=== PATIENT | female | born 1980 | race American Indian/Alaskan Native ===

== ENCOUNTER 2017-09-13 12:39 | Outpatient (CLI) | payer OTHER ==
[2017-09-13] MEDS ORDERED: LACTATED RINGERS 500 ML IV ONE (13:41)
[2017-09-13 14:05] VITALS: BP 126/76
[2017-09-13] MEDS ORDERED: NORMOSOL-R PH 7.4 1,000 ML IV ONE (14:59)
[2017-09-13] MEDS ORDERED: NORMOSOL-R PH 7.4 1,000 ML IV SCH (15:00)
--- NOTE | 2017-09-13 15:08 | Ultrasound Report ---
OB sonogram: History: well being. Findings: Gestation: Single Position: Cephalic Amniotic Fluid: AUSTIN = 35.5. Normal being 7-24 cm cm Placenta: Fundal Placental Grade: 0 Heart Rate: 155 BPM Cervical length: 3.1 cm (Normal > 3 cm) NEUROANATOMY VISUALIZED: Unable to evaluate anatomy due to position. ANATOMY VISUALIZED: Normal Stomach Kidneys Bladder Diaphragm 4 Chamber Heart Heart 3 Vessel Cord Abd. Cord Insert SPINE VISUALIZED: Normal Longitudinal Transverse The measurements below are all approximate: BPD: 10.04 cm = 41 w 2 d HC: 36.45 cm AC: 39.83 cm FL: 8.1 cm = 41 w 3 d HC/AC Ratio: 0.92 Cephalic Index: 82.5 Estimated Weight: 4896 grams LMP: 12/31/16 Clinical age = 36 w 4 d EDC: 10/07/17 US Gest. Age = 41 w 3 d EDC: 09/03/17 BIOPHYSICAL PROFILE: 2 - breathing movements 2 - movements 2 - posture and tone 2 - Qualitative amniotic fluid volume - TOTAL SCORE OF POSSIBLE 8 Heart Rate (bpm) 144
== END 2017-09-13 17:02 | disposition home or self-care (01) ==
LOC: TRG 12:39
PROVIDERS: ATTEND Obstetrics & Gynecology
DX: O47.03 False labor before 37 completed weeks of gestation, third trimester (principal); Z3A.36 36 weeks gestation of pregnancy
CPT/HCPCS: 59025; 76805; 76819; 96360

== ENCOUNTER 2017-09-26 05:42 | Inpatient (IN) | payer SELFPAY ==
[2017-09-26] MEDS: NORMOSOL-R PH 7.4 1,000 ML IV SCH ×3 (06:10→07:38)
[2017-09-26] MEDS ORDERED: REGLAN IV ONE (06:30)
[2017-09-26] MEDS ORDERED: BICITRA PO ONE (06:31)
[2017-09-26] MEDS ORDERED: PEPCID IV ONE (06:31)
[2017-09-26 06:59] LABS: Basophils % (Auto) 0.2 % (0.0-1.8); Eosinophils # (Auto) 0.1 K/mm3 (0.0-0.4); Eosinophils % (Auto) 0.9 % (0.0-4.3); Hematocrit 29.9 % (30.3-42.9); Hemoglobin 9.8 gm/dl (10.1-14.3); Lymphocytes # (Auto) 1.6 K/mm3 (1.2-5.4); Lymphocytes % (Auto) 21.1 % (13.4-35.0); Mean Corpuscular HGB Conc 33 % (30-34); Mean Corpuscular Volume 77 fl (79-97); Monocytes # (Auto) 0.8 K/mm3 (0.0-0.8); Monocytes % (Auto) 10.6 % (0.0-7.3); Platelet Count 231 K/mm3 (140-440); Red Blood Count 3.87 M/mm3 (3.65-5.03)
[2017-09-26] MEDS ORDERED: ANCEF/STERILE WATER 2 GM/20 ML 2 GM/20 ML SYRINGE IV NR (07:00)
[2017-09-26] MEDS ORDERED: PITOCin/NS 20 UNIT/1000ML DRIP 20 UNITS/1,000 ML BAG IV SCH ×2 (07:00→10:00)
[2017-09-26 07:02] LABS: Mean Corpuscular Hemoglobin 25 pg (28-32)
--- NOTE | 2017-09-26 07:18 | Anesthesia Day of Surgery ---
Anesthesia Day of Surgery - Day of Surgery Patient Examined: Yes Patient H&P Reviewed: Yes Patient is NPO: Yes
--- NOTE | 2017-09-26 07:18 | Anesthesia Consultation ---
Anesthesia Consult and Med Hx Date of service: 09/26/17 - Airway Anesthetic Teeth Evaluation: Good ROM Head & Neck: Adequate Mental/Hyoid Distance: Adequate Mallampati Class: Class III Intubation Access Assessment: Possibly Difficult - Pre-Operative Health Status ASA Pre-Surgery Classification: ASA2 Proposed Anesthetic Plan: Epidural, Spinal - Pulmonary Hx Asthma: No COPD: No Hx Pneumonia: No - Cardiovascular System Hx Hypertension: No - Central Nervous System Hx Seizures: No Hx Psychiatric Problems: No - Endocrine Hx Renal Disease: No Hx End Stage Renal Disease: No Hx Hypothyroidism: No Hx Hyperthyroidism: No - Hematic Hx Anemia: No Hx Sickle Cell Disease: No - Other Systems Hx Alcohol Use: No
--- NOTE | 2017-09-26 08:05 | History and Physical Report ---
History of Present Illness Date of examination: 09/26/17 Date of admission: 09/26/17 05:42 Chief complaint: Repeat C Section History of present illness: Pt is a 37yo BF EDC 10/07/17; EGA 38 3/7 weeks presents for repeat C Section with Tubal ligation due to suspected macrosomia with polyhydramnios. She received care in [facility] and transferred to [facility] at 36 weeks. Ob u/s 09/13/17 showed velazquez, cephalic, AUSTIN 35.5, EFW 4896gms, u/s EGA 41 3/7 weeks; BPP 8/8. records are available, but labs and GBS is unknown Past History Past Medical History: no pertinent history Past Surgical History: section Social history: no significant social history, - Obstetrical History Expected Date of Delivery: 10/07/17 Actual Gestation: 38 Week(s) 3 Day(s) : 4 Medications and Allergies Allergies Allergy/AdvReac Type Severity Reaction Status Date / Time No Known Allergies Allergy Unverified 09/13/17 13:28 Home Medications Medication Instructions Recorded Confirmed Last Taken Type Ferrous Sulfate [Feosol 325 MG tab] 325 mg PO BID #60 tablet 09/26/17 Unknown Rx HYDROcodone/APAP 5-325 [[place] 1 each PO Q6HR PRN #30 tablet 09/26/17 Unknown Rx 5/325] Ibuprofen [Motrin] 800 mg PO Q8HR PRN #30 tablet 09/26/17 Unknown Rx Vit Calc,Iron,Folic 1 each PO DAILY #30 tablet 09/26/17 Unknown Rx [ Vitamins] Vitamin 1 tab PO DAILY 09/26/17 09/26/17 09/19/17 10:00 History Active Meds: Active Medications Diphenhydramine HCl (Benadryl) 12.5 mg IV Q2H PRN PRN Reason: Itching Hydromorphone HCl (Dilaudid) 0.5 mg IV Q4H PRN PRN Reason: breakthrough pain > 7/10 Cefazolin Sodium (Ancef/Sterile Water 2 Gm/20 Ml) 2 gm in 20 mls @ 80 mls/hr IV PREOP NR; Protocol Stop: 09/26/17 23:45 Parenteral Electrolytes (Normosol-R Ph 7.4) 1,000 mls @ 2,250 mls/hr IV PREOP SHAJI Stop: 09/27/17 07:27 Last Admin: 09/26/17 07:38 Dose: 2,250 mls/hr Oxytocin/Sodium Chloride (Pitocin/Ns 20 Unit/1000ml Drip) 20 units in 1,000 mls @ 0 mls/hr IV TITR SHAJI Influenza Virus Vaccine Quadrival (Fluarix Quad [id number](36 Mos+) 0.5 ml IM .ONCE ONE Stop: 09/26/17 12:01 Ketorolac Tromethamine (Toradol) 30 mg IV Q6H PRN PRN Reason: Pain, Moderate (4-6) Stop: 10/01/17 07:18 Naloxone HCl (Narcan 0.4 Mg/1 Ml) 0.2 mg IV Q2MIN PRN PRN Reason: Res Rate </= 8 or 02 SAT < 92% Ondansetron HCl (Zofran) 4 mg IV Q8H PRN PRN Reason: Nausea And Vomiting Promethazine HCl (Phenergan) 25 mg PO Q6H PRN PRN Reason: Nausea And Vomiting Promethazine HCl (Phenergan) 25 mg KS Q6H PRN PRN Reason: Nausea And Vomiting Sodium Chloride (Sodium Chloride Flush Syringe 10 Ml) 10 ml IV PRN NR Review of Systems All systems: negative - Vital Signs Vital signs: Vital Signs Temp Pulse Resp Pulse Ox 97.7 F 104 H 20 99 09/26/17 06:01 09/26/17 06:01 09/26/17 06:01 09/26/17 06:01 Temp Pulse Resp BP Pulse Ox 97.7 F 102 H 20 98 09/26/17 06:01 09/26/17 08:02 09/26/17 06:01 09/26/17 08:02 - Physical Exam Breasts: Positive: deferred Cardiovascular: Regular rate Lungs: Positive: Clear to auscultation Abdomen: Positive: normal appearance, soft Genitourinary (Female): Positive: normal external genitalia Uterus: Positive: enlarged Extremities: Positive: normal - Obstetrical FHR: category 1 Uterine Contraction Monitor Mode: External Results Result Diagrams: 09/26/17 06:00 Abnormal lab results 09/26/17 Range/Units 06:00 Hgb 9.8 L (10.1-14.3) gm/dl Hct 29.9 L (30.3-42.9) % MCV 77 L (79-97) fl MCH 25 L (28-32) pg RDW 17.0 H (13.2-15.2) % Simpson % (Auto) 10.6 H (0.0-7.3) % All other labs normal. Ultrasound: report reviewed Assessment and Plan - Patient Problems (1) 38 weeks gestation of Onset Date: 09/26/17 Current Visit: Yes Status: Acute Plan to address problem: A: IUP @ 38 3/7 weeks Previous C Section Desires permanent sterilization Polyhydramnios Suspected macrosomia P: Admit to L&D for repeat C Section with Bilateral Tubal Ligation Obtain labs (2) Previous delivery affecting Onset Date: 09/26/17 Current Visit: Yes Status: Acute (3) Polyhydramnios affecting in third trimester Onset Date: 09/26/17 Current Visit: Yes Status: Acute (4) Suspected macroscopic fetus Onset Date: 09/26/17 Current Visit: Yes Status: Acute Qualifiers: Fetus number: single or unspecified fetus Trimester: third trimester Qualified Code(s): O36.63X0 - Maternal care for excessive growth, third trimester, not applicable or unspecified
[2017-09-26] MEDS ORDERED: NACL 0.9% IR ONE (08:20)
[2017-09-26] MEDS ORDERED: WATER FOR IRRIG STERILE IR ONE (08:20)
[2017-09-26] MEDS ORDERED: METHERGINE IM ONE (08:53)
[2017-09-26] MEDS ORDERED: NEO SYNEPHRINE/NS Syringe(OR USE) IV ONE (09:06)
[2017-09-26] MEDS ORDERED: ASTRAMORPH PF 10MG/10ML ONE (09:13)
[2017-09-26] MEDS ORDERED: DILAUDID IV PRN (09:30)
[2017-09-26] MEDS ORDERED: PHENERGAN PR PRN (09:30)
[2017-09-26] MEDS ORDERED: BENADRYL IV PRN (09:30)
[2017-09-26] MEDS ORDERED: SODIUM CHLORIDE FLUSH SYRINGE 10 ML IV PRN (09:30)
[2017-09-26] MEDS ORDERED: ZOFRAN IV PRN (09:30)
[2017-09-26] MEDS ORDERED: PHENERGAN PO PRN (09:30)
[2017-09-26] MEDS ORDERED: NARCAN 0.4 MG/1 ML IV PRN ×2 (09:30→09:43)
[2017-09-26] MEDS ORDERED: MYLICON PO PRN (09:43)
[2017-09-26] MEDS ORDERED: TUCKS PAD TP PRN (09:43)
[2017-09-26] MEDS ORDERED: SENOKOT PO PRN (09:43)
[2017-09-26] MEDS ORDERED: NORCO 5/325 PO PRN (09:43)
[2017-09-26] MEDS ORDERED: LANSINOH TP PRN (09:43)
[2017-09-26] MEDS ORDERED: TYLENOL PO PRN (09:43)
[2017-09-26] MEDS ORDERED: NACL 0.9% 1000 ML 1,000 ML ONE (09:51)
[2017-09-26] MEDS ORDERED: SODIUM CHLORIDE FLUSH SYRINGE 10 ML IV NR (10:00)
[2017-09-26] MEDS ORDERED: ANCEF/NS 1 GM/50 ML 1 GM/50 ML BAG IV SCH (10:00)
--- NOTE | 2017-09-26 10:02 | Operative Report ---
Operative Report Operative Report: Date of procedure: 09/26/2017 Pre-operative diagnosis: 1. Intrauterine at 38-3/7 weeks 2. Previous 3. Polyhydramnios 4. Suspected macrosomia 5. Desires permanent sterilization Post-operative diagnosis: Same Procedure name(s): 1. Repeat low transverse section 2. Bilateral tubal ligation Surgeon: Jimmy Mccord MD Senior Finance Manager: None Anesthesia: Spinal anesthesia by JOHN Fairchild EBL: 800 mL Findings: A 4875 g male infant Apgars 8 at 1 minute 9 at 5 minutes. Copious clear amniotic fluid. Normal uterus. Normal tubes and ovaries bilaterally. Procedure: After the patient was prepped and draped in usual sterile fashion, and after satisfactory level of epidural anesthesia was obtained, the skin knife was used to make a transverse skin incision through the previous skin scar. The incision was excised down to layer of the fascia, which was nicked in the midline and extended laterally using the Bovie cautery. The rectus muscles were dissected off the rectus fascia both superiorly and inferiorly. The rectus bellies in the midline, and the peritoneum was entered under direct visualization. The peritoneal incision was extended superiorly and inferiorly. A bladder flap was created and the bladder blade was then placed. The uterus was scored in a curvilinear linear fashion, entered in the midline revealing copious clear amniotic fluid. The 's head was delivered onto the surgical field with the aid of vacuum, and the oropharynx and nasopharynx were bulb suctioned. The rest of the 's body was delivered, cord was doubly clamped and cut and the was handed to the waiting respiratory team. The placenta was manually removed from the uterus, and the uterus removed from its normal anatomical position. After gentle uterine lavage, the incision was inspected and found to be without extensions. It was then closed in 2 layers using 0 Vicryl suture in a running interlocking fashion, the second layer imbricating the first. Attention was then turned to the tubal ligation. First the right fallopian tube was grasped using the Falkner, and after identifying the fimbriated end of the right tube, the Filshie clip was applied to the proximal portion of the tube. The same procedure was performed on the left fallopian tube. The left fallopian tube was grasped using a Falkner, and after identifying the fimbriated end of the left tube, the Filshie clip was applied to the proximal portion of the tube. After good hemostasis was achieved, copious amounts or irrigation was performed , and the gutters were suctioned free of blood and blood clots. The Tisseel sealant was sprayed across the uterine incision. The uterus was then returned to its normal anatomical position, and after excellent hemostasis assured, the peritoneum was re-approximated using 3-0 Vicryl suture in a running interlocking fashion, and then the rectus muscles were re-approximated using 3- 0 Vicryl suture in a [id number] configuration. The fascia was then re- approximated using 0 Vicryl suture in running interlocking fashion. The sub- cutaneous layer was made hemostatic using Bovie cautery, the Tisseel sealant was sprayed across the fascial incision and the skin edges re-approximated using 4-0 Vicryl suture in a sub-cuticular fashion. Patient tolerated the procedure well was transported to recovery in stable condition.
[2017-09-26 11:47] LABS: Rubella IgG Antibody Immune (Immune)
[2017-09-26] MEDS ORDERED: Fluarix Quad 2017-2018(36 MOS+ IM ONE (12:00)
[2017-09-26] MEDS: TORADOL IV PRN ×2 (12:11→21:50)
[2017-09-26 14:12] LABS: Hepatitis C Virus Antibody Non-Reactive (NonReactive)
[2017-09-26] MEDS: D5LR 1,000 ML IV SCH (17:48)
[2017-09-26] MEDS: ceFAZolin 1 GM in NACL 0.9% 20 ML IV SCH (17:48)
[2017-09-26 21:47] LABS: Hematocrit 28.6 % (30.3-42.9); Hemoglobin 9.7 gm/dl (10.1-14.3)
[2017-09-27] MEDS: D5LR 1,000 ML IV SCH (01:16)
[2017-09-27] MEDS: ceFAZolin 1 GM in NACL 0.9% 20 ML IV SCH (01:23)
[2017-09-27] MEDS: PERCOCET 5/325 PO PRN ×2 (05:35→11:25)
[2017-09-27] MEDS ORDERED: M-M-R II VACCINE SUB-Q ONE (06:00)
[2017-09-27] MEDS ORDERED: BOOSTRIX IM ONE (06:00)
--- NOTE | 2017-09-27 08:42 | Progress Note ---
Assessment and Plan - Patient Problems (1) 38 weeks gestation of Onset Date: 09/26/17 Current Visit: Yes Status: Resolved (2) Previous delivery affecting Onset Date: 09/26/17 Current Visit: Yes Status: Resolved (3) Polyhydramnios affecting in third trimester Onset Date: 09/26/17 Current Visit: Yes Status: Resolved (4) Suspected macroscopic fetus Onset Date: 09/26/17 Current Visit: Yes Status: Resolved Qualifiers: Fetus number: single or unspecified fetus Trimester: third trimester Qualified Code(s): O36.63X0 - Maternal care for excessive growth, third trimester, not applicable or unspecified (5) Status post section Onset Date: 09/27/17 Current Visit: Yes Status: Resolved Plan to address problem: A: S/P Repeat C Section with BTL - POD #1 Doing well Asymptomatic anemia - stable P: Continue RPOC Anticipate discharge in 24-48hrs Subjective - Subjective Date of service: 09/27/17 Principal diagnosis: s/p Repeat C Section with BTL - POD #1 Interval history: Pt is feeling well without complaints, tolerating a liquid diet without nausea or vomiting. Bleeding improved. Patient reports: appetite normal, voiding normally, pain well controlled, flatus , ambulating normally, no dizzy ambulation, no nauseated [place]: doing well, in NICU Objective - Vital Signs Latest vital signs: Vital Signs Temp Pulse Resp BP BP Pulse Ox 09/27/17 05:35 18 09/27/17 03:53 99.2 F 95 H 18 109/54 98 09/26/17 23:46 98.6 F 97 H 18 112/56 96 09/26/17 21:50 20 09/26/17 20:50 98.5 F 103 H 18 114/62 95 09/26/17 16:11 98.5 F 98 H 20 121/60 95 09/26/17 11:30 97.5 F L 84 16 129/69 99 09/26/17 10:55 98.6 F 09/26/17 10:52 86 16 133/61 99 09/26/17 10:47 98.6 F 97 H 97 09/26/17 10:42 90 18 133/61 100 09/26/17 10:37 89 96 09/26/17 10:36 92 H 94 09/26/17 10:32 99 H 12 133/61 100 09/26/17 10:27 93 H 96 09/26/17 10:22 82 21 130/57 100 09/26/17 10:16 91 H 12 121/64 100 09/26/17 10:10 84 16 121/64 100 09/26/17 10:05 86 17 131/66 100 09/26/17 10:00 83 12 117/60 100 09/26/17 09:56 88 10 L 118/43 100 09/26/17 09:55 97.6 F 87 16 118/43 Intake and Output 09/26/17 09/27/17 09/27/17 22:59 06:59 14:59 Intake Total 600 1053.333 Output Total 625 1500 Balance -25 -446.667 Intake: IV 933.333 D5lr 1,000 ml @ 125 mls/ 933.333 hr IV DIRECT SHAJI Rx#: [id number] Oral 600 120 Output: Urine 625 1500 Indwelling Catheter 625 1500 Other: Total, Intake Amount 240 120 Total, Output Amount 150 1200 - Exam Breasts: Present: deferred Cardiovascular: Present: Regular rate Lungs: Present: Clear to auscultation Abdomen: Present: normal appearance, soft Uterus: Present: normal, firm, fundal height below umbilicus Extremities: Present: normal Incision: Present: normal, dry, intact, dressed - Labs Labs: Abnormal lab results 09/26/17 Range/Units 21:29 Hgb 9.7 L (10.1-14.3) gm/dl Hct 28.6 L (30.3-42.9) % Laboratory Tests 09/26/17 09/26/17 09/26/17 06:00 06:00 06:53 WBC 7.4 RBC 3.87 Hgb 9.8 L Hct 29.9 L MCV 77 L MCH 25 L MCHC 33 RDW 17.0 H Plt Count 231 Lymph % (Auto) 21.1 Dewitt % (Auto) 10.6 H Eos % (Auto) 0.9 Baso % (Auto) 0.2 Lymph # 1.6 Dewitt # 0.8 Eos # 0.1 Baso # 0.0 Seg Neutrophils % 67.2 Seg Neutrophils # 5.0 RPR Nonreactive Hep Bs Antigen Hepatitis C Antibody HIV 1&2 Antibody Rapid HIV P24 Antigen Rubella IgG Antibody Blood Type A POSITIVE Antibody Screen Negative 09/26/17 09/26/17 09/26/17 10:40 10:40 10:40 WBC RBC Hgb Hct MCV MCH MCHC RDW Plt Count Lymph % (Auto) [place]itt % (Auto) Eos % (Auto) Baso % (Auto) Lymph # Dewitt # Eos # Baso # Seg Neutrophils % Seg Neutrophils # RPR Hep Bs Antigen Reactive Hepatitis C Antibody Non-reactive HIV 1&2 Antibody Rapid Non react HIV P24 Antigen Non react Rubella IgG Antibody Immune Blood Type Antibody Screen 09/26/17 21:29 WBC RBC Hgb 9.7 L Hct 28.6 L MCV MCH MCHC RDW Plt Count Lymph % (Auto) [place] % (Auto) Eos % (Auto) Baso % (Auto) Lymph # Dewitt # Eos # Baso # Seg Neutrophils % Seg Neutrophils # RPR Hep Bs Antigen Hepatitis C Antibody HIV 1&2 Antibody Rapid HIV P24 Antigen Rubella IgG Antibody Blood Type Antibody Screen
[2017-09-27] MEDS: PRENATAL VITAMIN PO SCH (11:25)
[2017-09-27] MEDS: FEOSOL PO SCH (11:25)
[2017-09-27] MEDS: MOTRIN PO PRN ×2 (15:35→22:37)
[2017-09-27] MEDS: MILK OF MAGNESIA PO PRN (21:14)
[2017-09-28] MEDS ORDERED: BOOSTRIX IM ONE (06:00)
[2017-09-28 08:46] VITALS: BP 124/59
--- NOTE | 2017-09-28 09:02 | Progress Note ---
Assessment and Plan - Patient Problems (1) 38 weeks gestation of Onset Date: 09/26/17 Current Visit: Yes Status: Resolved (2) Previous delivery affecting Onset Date: 09/26/17 Current Visit: Yes Status: Resolved (3) Polyhydramnios affecting in third trimester Onset Date: 09/26/17 Current Visit: Yes Status: Resolved (4) Suspected macroscopic fetus Onset Date: 09/26/17 Current Visit: Yes Status: Resolved Qualifiers: Fetus number: single or unspecified fetus Trimester: third trimester Qualified Code(s): O36.63X0 - Maternal care for excessive growth, third trimester, not applicable or unspecified (5) Status post section Onset Date: 09/27/17 Current Visit: Yes Status: Resolved Plan to address problem: A: S/P Repeat C Section with BTL - POD #2 Doing well Asymptomatic anemia - stable P: May go home today Subjective - Subjective Date of service: 09/28/17 Principal diagnosis: s/p Repeat C Section with BTL - POD #2 Interval history: Pt is feeling well without complaints, tolerating a reg diet without nausea or vomiting, ambulating and voiding without difficulty. Patient reports: appetite normal, voiding normally, pain well controlled, flatus , ambulating normally, no dizzy ambulation, no nauseated : doing well, in NICU Objective - Vital Signs Latest vital signs: Vital Signs Temp Pulse Resp BP Pulse Ox 09/28/17 07:56 98.3 F 95 H 20 124/59 97 09/28/17 00:00 98.9 F 91 H 18 120/62 09/27/17 17:20 98.1 F 92 H 18 123/67 99 - Exam Breasts: Present: deferred Cardiovascular: Present: Regular rate Lungs: Present: Clear to auscultation Abdomen: Present: normal appearance, soft Uterus: Present: normal, firm, fundal height below umbilicus Extremities: Present: normal Incision: Present: normal, dry, intact
--- NOTE | 2017-09-28 09:03 | Discharge Summary ---
Providers - Providers Date of Admission: 09/26/17 05:42 Date of discharge: 09/28/17 Attending physician: DAVE CARTER Primary care physician: DAVE CARTER Hospitalization Reason for admission: section, IUP at term, other (Suspected macrosomia; Polyhydramnios) Delivery: Procedure: section, bilateral tubal ligation, repeat low transverse Episiotomy: none Laceration: none Incision: normal, dry, intact Other procedures: none complications: none Discharge diagnosis: IUP at term delivered [place] baby: male Hospital course: Pt is a 37yo BF EDC 10/07/17; EGA 38 3/7 weeks who presented for repeat C Section with Tubal ligation due to suspected macrosomia with polyhydramnios. She received care in [facility] and transferred to [facility] at 36 weeks. She underwent an uncomplicated Repeat C section with BTL and tolerated the procedure well. By POD #2 she was tolerating a reg diet without nausea or vomiting, ambulating and voiding without difficulty. She was therefore discharged to home on POD #2 in stable condition. Condition at discharge: Good Disposition: DC-01 TO HOME OR SELFCARE - Discharge Diagnoses (1) 38 weeks gestation of Status: Resolved (2) Previous delivery affecting Status: Resolved (3) Polyhydramnios affecting in third trimester Status: Resolved (4) Suspected macroscopic fetus Status: Resolved Qualifiers: Fetus number: single or unspecified fetus Trimester: third trimester Qualified Code(s): O36.63X0 - Maternal care for excessive growth, third trimester, not applicable or unspecified (5) Status post section Status: Resolved Plan - Discharge Medications Prescriptions: Ferrous Sulfate [Feosol 325 MG tab] 325 mg PO BID #60 tablet HYDROcodone/APAP 5-325 [[place] 5/325] 1 each PO Q6HR PRN #30 tablet PRN Reason: Pain Ibuprofen [Motrin] 800 mg PO Q8HR PRN #30 tablet PRN Reason: Moder Pain Unrelieved By [place] Vit Calc,Iron,Folic [ Vitamins] 1 each PO DAILY #30 tablet - Provider Discharge Summary Activity: routine, no sex for 6 weeks, no heavy lifting 4 weeks, no strenuous exercise Diet: routine Instructions: routine Additional instructions: [] Smoking cessation referral if applicable(refer to patient education folder for contact #) [] Refer to [facility] Booklet Call your doctor immediately for: * Fever > 100.5 * Heavy vaginal bleeding ( >1 pad per hour) * Severe persistent headache * Shortness of breath * Reddened, hot, painful area to leg or breast * Drainage or odor from incision. * Keep incision clean and dry at all times and follow doctor's instructions regarding bathing/showering - Follow up plan Follow up: DAVE CARTER MD [Primary Care Provider] - 14 Days
[2017-09-28] MEDS: PRENATAL VITAMIN PO SCH (09:19)
[2017-09-28] MEDS: FEOSOL PO SCH (09:19)
[2017-09-28] MEDS: MOTRIN PO PRN (09:20)
[2017-09-28] MEDS ORDERED: Fluarix Quad 2017-2018(36 MOS+ IM ONE (10:30)
[2017-09-28] MEDS: MILK OF MAGNESIA PO PRN (13:24)
== END 2017-09-28 14:00 | disposition home or self-care (01) | DRG 765 ==
LOC: APU 05:42 → EDBD 05:42 → OB 11:35
PROVIDERS: ADMIT Obstetrics & Gynecology; ATTEND Obstetrics & Gynecology
PROC: 10D00Z1 Extraction of Products of Conception, Low, Open Approach (ICD-10-PCS; principal; 2017-09-26)
PROC: 0UL70CZ Occlusion of Bilateral Fallopian Tubes with Extraluminal Device, Open Approach (ICD-10-PCS; 2017-09-26)
PROC: 3E0234Z Introduction of Serum, Toxoid and Vaccine into Muscle, Percutaneous Approach (ICD-10-PCS; 2017-09-28)
DX: O34.211 Maternal care for low transverse scar from previous cesarean delivery (principal); O40.3XX0 Polyhydramnios, third trimester, not applicable or unspecified; O36.63X0 Maternal care for excessive fetal growth, third trimester, not applicable or unspecified; D64.9 Anemia, unspecified; O99.03 Anemia complicating the puerperium; Z3A.38 38 weeks gestation of pregnancy; Z37.0 Single live birth; Z30.2 Encounter for sterilization; Z23 Encounter for immunization
CPT/HCPCS: 36415; 85014; 85018; 85025; 86592; 86706; 86762; 86803; 86850; 86900; 86901; 87806; 88307; 90471; 90686; 90715; 99211; A6250; C9250; G0008; G0463; J0690; J1885; J2210; J2274; J2370; J2405; J2590; J2765; J7030; J7121